=== PATIENT | male | born 1950 | race Caucasian/White ===

== ENCOUNTER 2017-04-30 16:34 | Emergency (ER) | payer OTHER ==
[2017-04-30 16:48] VITALS: RESP 16
--- NOTE | 2017-04-30 17:14 | EDPHY ---
General Narrative: CHIEF COMPLAINT: Numbness and tingling HISTORY OF PRESENT ILLNESS: Patient complains of head to toe numbness and tingling. This started approximately 10 days ago. These are episodes of 30-40 seconds that are sudden in onset. They spontaneously resolved. There are completely head to toe in bilateral. They are never unilateral. There is no chest pain or palpitations. No difficulty with speech. No nausea or vomiting. No diaphoresis. No modifying factors as they spontaneously resolved. He has had multiple episodes per day ever since. No medications tried. This started after taking an unknown [place] medicine expectorant. He went to urgent care today and sent to our facility for higher level of care. No other associated complaints or modifying factors. REVIEW OF SYSTEMS: Ten systems reviewed and are negative unless otherwise noted in the HPI PCP: Dr. Valdez SPECIALISTS: None PAST MEDICAL HISTORY: None PAST SURGICAL HISTORY: Inverted papilloma, SOCIAL HISTORY: Nonsmoker. No alcohol or drug use. 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 No facial droop. Eyes: Pupils equal and round, no conjunctival pallor or injection. EOMs intact. No dysconjugate gaze or nystagmus. ENT, Mouth: Mucous membranes moist Neck: Normal inspection, supple, non-tender Respiratory: Lungs are clear to auscultation. No wheeze, rhonchi or crackles Cardiovascular: Regular rate and rhythm. No murmur Gastrointestinal: Abdomen is soft and nontender Back: non-tender, no bony abnormalities Neurological: GCS 15. A&Ox3. Cranial nerves 2-12 grossly intact. Strength is symmetric in the arms and limbs. nonfocal, normal gait. No pronator drift. No facial droop. Normal speech. Normal finger to nose. Skin: Warm and dry, no rash. No petechiae or purpura. Extremities: Nontender, no pedal edema Psychiatric: Mood and affect normal DIFFERENTIAL DIAGNOSES: Including but not limited to anxiety, peripheral neuropathy, central neuropathy , TIA, CVA MDM: 5:10 p.m. Head to toe numbness and tingling that has been intermittently present for the past 10 days, after starting a [place] medicine supplement expectorant. He does not have the label for the medication. He does not know what was in the medication. He is no longer taking medication. There is no evidence of stroke by examination or history. I do not appreciate any ascending or Guillain-Latrobe type symptoms. I have ordered laboratory studies an EKG. He is resting comfortably in no acute distress with no symptoms at this time. 5:40 p.m. Laboratory studies are all within normal limits. EKG is unremarkable. I re- evaluated the patient this time. I informed him of the laboratory studies. He tells me that he forgot to informed me that this happened at the urgent care earlier today, and during that his blood pressure was elevated anything somewhere around 180 systolic. He still to 1st time. I will discuss with Dr. Fuller. 6:20 p.m. TSH was ordered 30 min ago on blood in lab but not yet pending. Will contact laboratory to discuss. 6:25 p.m. TSH is now pending. 6:40 p.m. Case discussed with the on-call neurologist Dr. Atkins. He recommends CT scan of the head without contrast. If no abnormality, he would be happy to follow up with patient in the outpatient clinic. 6:45 p.m. Patient re-evaluated. I was entering room to inform the patient of this. I was notified by RN that the patient attempted to ambulate to the restroom and had a near syncopal episode. He reportedly had a near syncopal episode but did not lose consciousness, and he was helped back to the bed by two RNs. I did not witness this event. 7:20 p.m. TSH negative. Troponin negative. Orthostatics negative. CT scan performed but not yet read. 7:25 p.m. Notified by radiologist Dr. Barahona. CT scan of the head reveals no acute findings. Patient re-evaluated. He is resting comfortably with no symptoms. He informed me that he did have several flights over the past 2 weeks, 1 of which was to try. He has no chest pain or shortness of breath, no palpitations or tachycardia, not mild ptosis, no unilateral erythema edema or pain. No previous history of venous thrombolic event. We discussed road test and discharge home if he passes. He is comfortable this plan. 7:35 p.m. Notified by SANKET Tracey. She ambulated the patient in the hallway. Said that he ambulated fine. When she returned to the bed he said that he felt lightheaded, but his vital signs were well within normal limits and he did not have a syncopal episode. At this point I do feel he is stable for discharge home. I suspect this is likely due to the medication that he took the from [place]. Recommend that he does not resume this. Recommend that he contact his primary care physician. Recommend he return to ED for any syncope, chest pain, shortness of breath, pain or redness or swelling in any extremity. Is comfortable this plan and discharged home stable condition. EKG interpretation: Dr. Fuller Sinus rhythm without ischemia. No previous for comparison SUPERVISION: Patient was independently examined, but I discussed the case with my secondary supervising physician Dr. Fuller - Diagnostics Imaging Results: Imaging Impressions Head CT 04/30/17 18:40 Impression: Nothing acute intracranially. Findings and recommendations discussed with Homero Gillette PA-C, at 1913 hours, on April 30, 2017. Final report concurs with initial preliminary interpretation. - History Smoking Status: Never smoked - Objective Vital Signs: Initial Vital Signs Temperature (C) 98 F 04/30/17 16:41 Heart Rate 79 04/30/17 16:41 Respiratory Rate 16 04/30/17 16:41 Blood Pressure 147/77 H 04/30/17 16:41 O2 Sat (%) 96 04/30/17 16:41 O2 Delivery Mode Room Air Allergies/Adverse Reactions: cephalexin [From Keflex] Allergy (Verified 04/30/17 16:39) Penicillins Allergy (Verified 04/30/17 16:40) Sulfa (Sulfonamide Antibiotics) Allergy (Verified 04/30/17 16:40) Home Medications: Medication Instructions Recorded NK [No Known Home Meds] 04/30/17 Laboratory Results: Laboratory Results 04/30/17 17:14 04/30/17 17:14 04/30/17 04/30/17 04/30/17 17:14 17:14 17:14 WBC RBC Hgb Hct MCV MCH MCHC RDW Plt Count MPV Neut % (Auto) Lymph % (Auto) Wilcox % (Auto) Eos % (Auto) Baso % (Auto) Nucleat RBC Rel Count Absolute Neuts (auto) Absolute Lymphs (auto) Absolute Monos (auto) Absolute Eos (auto) Absolute Basos (auto) Absolute Nucleated RBC Immature Gran % Immature Gran # Sodium 144 mEq/L mEq/L (134-144) Potassium 4.0 mEq/L mEq/L (3.5-5.2) Chloride 107 mEq/L mEq/L (97-110) Carbon Dioxide 24 mEq/l mEq/l (22-31) Anion Gap 13 mEq/L mEq/L (8-16) BUN 12 mg/dL mg/dL (7-23) Creatinine 1.2 mg/dL mg/dL (0.7-1.3) Estimated GFR > 60 Glucose 129 mg/dL H mg/dL (70-100) Calcium 9.3 mg/dL mg/dL (8.5-10.4) Magnesium 2.2 mg/dL mg/dL (1.6-2.3) Troponin I < 0.012 ng/mL ng/mL (0.000-0.034) TSH 1.460 uIU/mL uIU/mL (0.465-4.680) 04/30/17 17:14 WBC 8.17 10^3/uL 10^3/uL (3.80-9.50) RBC 5.16 10^6/uL 10^6/uL (4.40-6.38) Hgb 15.5 g/dL g/dL (13.7-17.5) Hct 44.4 % % (40.0-51.0) MCV 86.0 fL fL (81.5-99.8) MCH 30.0 pg pg (27.9-34.1) MCHC 34.9 g/dL g/dL (32.4-36.7) RDW 12.6 % % (11.5-15.2) Plt Count 314 10^3/uL 10^3/uL (150-400) MPV 9.4 fL fL (8.7-11.7) Neut % (Auto) 66.2 % % (39.3-74.2) Lymph % (Auto) 23.7 % % (15.0-45.0) Wilcox % (Auto) 7.1 % % (4.5-13.0) Eos % (Auto) 2.1 % % (0.6-7.6) Baso % (Auto) 0.7 % % (0.3-1.7) Nucleat RBC Rel Count 0.0 % % (0.0-0.2) Absolute Neuts (auto) 5.40 10^3/uL 10^3/uL (1.70-6.50) Absolute Lymphs (auto) 1.94 10^3/uL 10^3/uL (1.00-3.00) Absolute Monos (auto) 0.58 10^3/uL 10^3/uL (0.30-0.80) Absolute Eos (auto) 0.17 10^3/uL 10^3/uL (0.03-0.40) Absolute Basos (auto) 0.06 10^3/uL 10^3/uL (0.02-0.10) Absolute Nucleated RBC 0.00 10^3/uL 10^3/uL (0-0.01) Immature Gran % 0.2 % % (0.0-1.1) Immature Gran # 0.02 10^3/uL 10^3/uL (0.00-0.10) Sodium Potassium Chloride Carbon Dioxide Anion Gap BUN Creatinine Estimated GFR Glucose Calcium Magnesium Troponin I TSH Medications Given: Discontinued Medications Sodium Chloride (Ns) 1,000 mls @ 0 mls/hr IV EDNOW ONE; Wide Open PRN Reason: Protocol Stop: 04/30/17 18:48 Last Admin: 04/30/17 19:14 Dose: 1,000 mls Departure - Departure Disposition: Home, Routine, Self-Care Clinical Impression: Paresthesia of upper and lower extremities of both sides Adverse drug reaction Qualifiers: Encounter type: initial encounter Qualified Code(s): T88.7XXA - Unspecified adverse effect of drug or medicament, initial encounter Condition: Good Instructions: Paresthesia (ED) Additional Instructions: 1. Do not resume the supplement in question 2. Contact your established primary care physician for outpatient follow-up 3. ED precautions as discussed 4. Contact the on-call neurologist as discussed and as provided. Referrals: Sergio Lebron MD [Primary Care Provider] - As per Instructions Vasu Atkins MD [Medical Doctor] - As per Instructions
--- NOTE | 2017-04-30 17:20 | CPEKG ---
Heart Rate: 68 RR Interval: 882 P-R Interval: 140 QRSD Interval: 88 QT Interval: 392 QTC Interval: 417 P Austin: 38 QRS Austin: 15 T Wave [place]: 15 EKG Severity - NORMAL ECG - EKG Impression: SINUS RHYTHM Electronically Signed By: Dimitry Fuller 30-Apr-2017 22:19:23
[2017-04-30 17:26] LABS: PLATELET COUNT 314 10^3/uL (150-400)
[2017-04-30 17:47] VITALS: O2SAT 98
[2017-04-30] MEDS ORDERED: NS 1,000 ML IV ONE (18:47)
[2017-04-30 19:19] VITALS: PULSE 70
[2017-04-30 20:09] VITALS: BP 145/78; TEMP 98.6
== END 2017-04-30 20:20 | disposition home or self-care (01) ==
DX: R20.2 Paresthesia of skin (principal); T48.4X5A Adverse effect of expectorants, initial encounter; E86.9 Volume depletion, unspecified